=== PATIENT | female | born 1955 | race Caucasian/White ===

== ENCOUNTER 2018-01-31 11:29 | Emergency (ER) | payer BC ==
--- NOTE | 2018-01-31 12:25 | EDM.PDOC ---
ED HPI GENERAL MEDICAL PROBLEM - General Chief Complaint: Genitourinary Problem Stated Complaint: burning with urination Time Seen by Provider: 01/31/18 12:07 Source of Information: Reports: Patient History Limitations: Reports: No Limitations - History of Present Illness INITIAL COMMENTS - FREE TEXT/NARRATIVE: 2 day history of frequency and burning with urination. Only has discomfort when urinating. No rash/itching in vaginal area. No fevers/chills/nausea/emesis. History of UTIs in past, none recently. Feels like UTI to her. No other complaints. No hematuria. - Related Data Allergies Allergy/AdvReac Type Severity Reaction Status Date / Time No Known Allergies Allergy Verified 01/31/18 11:38 Home Meds: Home Meds Aspirin [Ecotrin] 81 mg PO DAILY 01/31/18 [History] Lisinopril 10 mg PO DAILY 01/31/18 [History] Nitrofurantoin Monohyd/M-Cryst [Macrobid 100 mg Capsule] 100 mg PO Q12HR #8 capsule 01/31/18 [Rx] Past Medical History Cardiovascular History: Reports: Hypertension Genitourinary History: Reports: Other (See Below) (History of UTIs) Social & Family History - Tobacco Use Smoking Status *Q: Former Smoker Used Tobacco, but Quit: Yes Month/Year Tobacco Last Used: 1 - Caffeine Use Caffeine Use: Reports: Coffee, Soda ED ROS GENERAL - Review of Systems Review Of Systems: See Below Constitutional: Reports: No Symptoms HEENT: Reports: No Symptoms Respiratory: Reports: No Symptoms Cardiovascular: Reports: No Symptoms GI/Abdominal: Reports: Other (has had mild intermittent discomfort left lower abdomen above groin area but attributed that to hitting it on the counter). Denies: Constipation, Diarrhea, Decreased Appetite, Nausea, Vomiting : Reports: Dysuria, Frequency, Pain, Urgency. Denies: Flank Pain, Hematuria, Incontinence, Irregular Menses Musculoskeletal: Reports: No Symptoms Skin: Reports: No Symptoms Neurological: Reports: No Symptoms Psychiatric: Reports: No Symptoms Hematologic/Lymphatic: Reports: No Symptoms ED EXAM, RENAL/ - Physical Exam Exam: See Below Exam Limited By: No Limitations General Appearance: Alert, WD/WN, No Apparent Distress Eye Exam: Bilateral Eye: EOMI, PERRL Head: Atraumatic, Normocephalic Neck: Supple Respiratory/Chest: No Respiratory Distress GI/Abdominal: Soft, Non-Tender Back Exam: Normal Inspection. No: CVA Tenderness (L), CVA Tenderness (R) Extremities: Normal Capillary Refill Neurological: Alert, Oriented, Normal Cognition, Normal Gait Psychiatric: Normal Affect, Normal Mood Skin Exam: Warm, Dry, Intact, Normal Color Course - Vital Signs Last Recorded V/S: Last Vital Signs Temp 37.4 C 01/31/18 11:48 Pulse 77 01/31/18 11:48 Resp 16 01/31/18 11:48 BP 142/89 H 01/31/18 11:48 Pulse Ox 100 01/31/18 11:48 - Orders/Labs/Meds Orders: Active Orders 24 hr Category Date Time Status UA W/MICROSCOPIC [URIN] Stat Lab 01/31/18 11:39 Ordered Labs: Laboratory Tests 01/31/18 Range/Units 11:39 Specimen Type Urinvoid Urine Color Yellow Urine Appearance Slightly cloudy Urine pH 5.5 (5.0-9.0) Ur Specific [place] 1.025 (1.005-1.030) Urine Protein 100 H (NEGATIVE) mg/dL Urine Glucose (UA) Negative (NEGATIVE) mg/dL Urine Ketones Negative (NEGATIVE) mg/dL Urine Occult Blood Large H (NEGATIVE) Urine Nitrite Negative (NEGATIVE) Urine Bilirubin Negative (NEGATIVE) Urine Urobilinogen 0.2 (0.2-1.0) E.U./dL Ur Leukocyte Esterase Negative (NEGATIVE) Urine RBC 50-75 H /HPF Urine WBC 0-5 /HPF Ur Epithelial Cells Few /LPF Urine Bacteria Few (NONE TO FEW) /HPF - Re-Assessments/Exams Free Text/Narrative Re-Assessment/Exam: UA showed hematuria. No WBC/leuk.esterase noted. UC ordered. Discussed differential with patient. Symptoms may certainly be attributed to early UTI. Cannot rule out possible kidney stone as potential cause of hematuria and urinary changes. Patient has no history of stones and has not had any other symptoms suggestive of stones. Plan at this time is to treat for possible UTI with Macrobid while waiting for UC to be completed. She is to watch for any other changes/symptom development. To follow up with her primary provider Friday if symptoms have not significantly improved. Further evaluation and testing may be needed. Patient is agreeable with plan. She will draft roller picker Pyridium to help with the dysuria as well as remaining course of Macrobid. She did get a to go bottle of Macrobid from the ER as pharmacy is closed for the weekend. Departure - Departure Time of Disposition: 12:23 Disposition: Home, Self-Care 01 Condition: Good Clinical Impression: Dysuria Hematuria Qualifiers: Hematuria type: unspecified type Qualified Code(s): R31.9 - Hematuria, unspecified - Discharge Information Prescriptions: Nitrofurantoin Monohyd/M-Cryst [Macrobid 100 mg Capsule] 100 mg PO Q12HR #8 capsule Instructions: Urinary Tract Infection, Adult, [id number], Hematuria, Adult Referrals: PCP,None [Primary Care Provider] - Forms: ED Department Discharge Additional Instructions: Watch for changes as we discussed, in case this ends up not behaving like a simple urinary tract infection. Follow up with your clinic on Friday if symptoms have not significantly improved. - My Orders Last 24 Hours: My Active Orders 01/31/18 11:39 UA W/MICROSCOPIC [URIN] Stat - Assessment/Plan Last 24 Hours: My Active Orders 01/31/18 11:39 UA W/MICROSCOPIC [URIN] Stat
== END 2018-01-31 12:30 | disposition home or self-care (01) ==
LOC: LL.ED 11:29 → MERGE 11:29 → LL.ED 12:30
DX: R30.0 Dysuria (principal); R31.9 Hematuria, unspecified; I10 Essential (primary) hypertension; Z79.82 Long term (current) use of aspirin; Z79.899 Other long term (current) drug therapy; Z87.891 Personal history of nicotine dependence
CPT/HCPCS: 81001; 99283